=== PATIENT | female | born 1950 | race Caucasian/White ===

== ENCOUNTER 2025-01-13 10:38 | Emergency (ER) | payer MEDICARE, OTHER, SELFPAY ==
[2025-01-13 10:38] VITALS: BP 128/80; PULSE 77; RESP 18; TEMP 36.9; O2SAT 100; BMI 29.2
[2025-01-13 11:13] VITALS: BP 153/82; PULSE 91; RESP 13; O2SAT 98
[2025-01-13] MEDS: dexAMETHasone 4 MG Tablet 8 MG PO (11:18)
[2025-01-13 11:25] LABS: Absolute Lymphocyte Count 0.59 X10^3/uL (0.83-4.51); Absolute Neutrophil Count 5.7 X10^3/uL (2.0-7.7); Basophil# 0.01 X10^3/uL; Basophil% 0.1 % (0-1); Eosinophil# 0.01 X10^3/uL; Eosinophils% 0.1 % (0-5); Hematocrit 41.1 % (37-47); Hemoglobin 13.9 g/dL (12.0-15.0); Lymphocyte # 0.59 X10^3/ul (0.83-4.51); Lymphocyte % 8.6 % (19-41); Mean Corp Hgb Conc 33.8 g/dL (32-36); Mean Corpuscular Hgb 30.1 pg (27.0-32.0); Mean Platelet Vol. 9.9 fl (6.2-12.0); Monocyte# 0.48 X10^3/uL; NRBC Flagged by Analyzer 0 % (0-5); Neutrophil # 5.73 X10^3/uL (2.7-7.7); Neutrophil % 83.9 % (47-70); POSITIVE DIFFERENTIAL YES; Platelet Count 211 K/mm3 (150-450); RBC Distribution Width CV 13.2 % (11.6-14.6); RBC Distribution Width SD 43.3 fl (35.1-43.9); Red Blood Count 4.62 M/mm3 (4.2-5.4); White Blood Count 6.8 K/mm3 (4.4-11.0)
--- NOTE | 2025-01-13 12:11 | EX.ED.DYSGE1 ---
HPI History of Present Illness Chief Complaint: Palpitations Informant: patient Narrative Narrative: Patient referred from urgent care due to reported palpitations. Patient last evening slight throat throat which worsened in the evening time. She states she felt her heart racing and pounding from her ear. She had fevers and chills. It resolved this morning. She went to express care report her symptoms was sent directly here. She states with any illnesses she feels symptoms that affects her clinically. No recurrent fevers. No medications taken. Still has her tonsils. Denies history of strep in the past. No chest pains no abdominal pain. No vomiting or diarrhea. She denied lightheaded symptoms with her racing heart. [facility] Medical History Thyroid disease Hypertension Home Medications ?Medication ?Instructions ?Recorded ?Last Taken ?Type atorvastatin 10 mg tablet (Lipitor) 10 mg PO QHS 01/13/25 01/12/25 History cholecalciferol (vitamin D3) 25 25 mcg PO DAILY 01/13/25 01/12/25 History mcg (1,000 unit) tablet cyanocobalamin (vitamin B-12) 500 500 mcg PO DAILY 01/13/25 01/12/25 History mcg tablet levothyroxine 50 mcg tablet 50 mcg PO DAILY 01/13/25 01/12/25 History (Unithroid) lisinopril 40 mg tablet 40 mg PO DAILY 01/13/25 01/12/25 History Allergy/AdvReac Type Severity Reaction Status Date / Time nickel Allergy Swelling Verified 01/13/25 10:38 Penicillins Allergy Hives Verified 01/13/25 10:38 Family History Other Cancer Diabetes Heart disease Surgical History History of tubal ligation Social History Smoking Status: Never smoker alcohol intake: current alcohol intake frequency: holidays/special occasions only Alcohol type: wine ROS ROS ED Constitutional Constitutional ED: Reports chills and fever(s); Denies sweats ENT ENT ED: Reports sore throat Cardiovascular Cardiovascular: Reports palpitations and racing heartbeat; Denies chest pain or leg edema Respiratory/Chest Respiratory/Chest: Denies cough, dyspnea or dyspnea on exertion Gastrointestinal Gastrointestinal: Denies abdominal pain, diarrhea, nausea or vomiting Genitourinary Genitourinary ED: Denies dysuria, hematuria or urinary frequency Musculoskeletal Musculoskeletal: Denies back pain, extremity pain or neck pain Integumentary Denies rash or wounds Neurologic Neurologic: Denies headache(s), paresthesias or weakness EXAM Physical Exam Const Vital Signs: 01/13/25 10:38 01/13/25 11:13 01/13/25 13:00 Temperature 98.4 F Temperature Source Oral Pulse Rate 77 91 71 Respiratory Rate 18 13 15 Blood Pressure 128/80 H 153/82 H 154/80 H Blood Pressure Mean 96 105 104 Pulse Ox 100 98 99 Oxygen Delivery Method Room Air Room Air 01/13/25 13:23 Temperature 98.8 F Temperature Source Pulse Rate 73 Respiratory Rate 16 Blood Pressure 144/80 H Blood Pressure Mean 101 Pulse Ox 99 Oxygen Delivery Method Positive well nourished and well developed General Appearance ED: well developed and NAD HEENT Reports TM's clear and moist mucous membranes HEENT Narrative: Posterior pharyngeal erythema minimal sized tonsils bilaterally. No exudates. Uvula midline. No trismus. normocephalic and atraumatic Tympanic Membrane ED: Yes TM's clear Eyes General Eye ED: Yes normal appearance of both eyes Neck full ROM Chest Wall Chest: Negative for tenderness Resp normal respiratory effort and normal air movement Effort and Inspection: symmetric chest movement; Negative for respiratory distress Cardio regular rate, regular rhythm and no murmurs Peripheral Pulses: pulses 2+ throughout GI normal to inspection, nondistended, normoactive bowel sounds and non-tender Palpation: Negative for guarding or rebound tenderness present Extremity normal to inspection General Extremety ED: Negative for edema or tenderness General Extremity: Negative for edema Neuro oriented x3 and no sensory deficits noted Sensorium / Orientation: awake and alert Skin no rashes or lesions noted and no wounds MDM MDM MDM Narrative Medical decision making narrative: Interventions / MDM: Differential diagnosis: Pharyngitis, palpitations Diagnosis considered but do not suspect: Strep however swab negative. No clinical peritonsillar abscess. My EKG interpretation: Sinus arrhythmia rate of 81, no ST changes. QTc 427. Imaging independently reviewed and interpreted by myself: N/A External documents reviewed: N/A Test considered but not ordered:N/A ED course: Patient reporting palpitations no lightheaded symptoms since resolved. She has mild posterior pharyngeal erythema. EKG notes sinus arrhythmia normal rate. Will check basic labs with electrolytes. She is on thyroid medication at home. Rapid strep ordered along with viral studies of COVID flu and RSV. Oral dexamethasone ordered to help with throat symptoms. Workup negative. Clinically was improving after the steroids. Reassured on findings. Discussed with patient return precautions. All questions were answered. Re-evaluation: stable Disposition discussed with patient/family/significant other: Patient Case discussed with consulting clinician: N/A This note was generated with [employer] dictation software. It may contain incorrect words, spelling, and punctuation that were not noted in checking the note before signing. Lab Data Attestation: I reviewed the patient's lab results. Labs: Laboratory Results - last 24 hr 01/13/25 11:05 WBC 6.8 RBC 4.62 Hgb 13.9 Hct 41.1 MCV 89.0 MCH 30.1 MCHC 33.8 RDW Std Deviation 43.3 RDW Coeff of Loli 13.2 Plt Count 211 MPV 9.9 Immature Gran % (Auto) 0.300 Neut % (Auto) 83.9 H Lymph % (Auto) 8.6 L [place] % (Auto) 7.0 Eos % (Auto) 0.1 Baso % (Auto) 0.1 Absolute Neuts (auto) 5.7 Absolute Lymphs (auto) 0.59 L Nucleated RBC % 0 Sodium 137 Potassium 5.1 Chloride 101 Carbon Dioxide 22.4 Anion Gap 14 BUN 14 Creatinine 0.72 Estim Creat Clear Calc 73.48 Est GFR (MDRD) Non-Af 89 BUN/Creatinine Ratio 19.4 Glucose 95 Calcium 9.4 Discharge Plan Triage Chief Complaint: Palpitations ED Provider: Michael Mackey Dx/Rx/DC Orders Clinical Impression: Pharyngitis, Palpitations Instructions: ED Palpitations, ED Pharyngitis, Viral Prescriptions: No Action levothyroxine [Unithroid] 50 mcg tablet 50 mcg PO DAILY atorvastatin [Lipitor] 10 mg tablet 10 mg PO QHS Patient Comments: PT TAKES EVERY OTHER DAY lisinopril 40 mg tablet 40 mg PO DAILY Patient Comments: PT TAKS AT NIGHT cholecalciferol (vitamin D3) 25 mcg (1,000 unit) tablet 25 mcg PO DAILY Patient Comments: PT TAKES AT NIGHT cyanocobalamin (vitamin B-12) 500 mcg tablet 500 mcg PO DAILY Patient Comments: PT TAKES AT NIGHT Primary Care Provider: OLENA REAVES Referrals: OLENA REAVES [Other] - 1 Week Activity Restrictions/Additional Instructions: Strep test negative. COVID flu and RSV negative. Your labs are stable. EKG sinus arrhythmia, this is normal. Follow-up with your doctor. You are status post dexamethasone. Print Language: Pakistani Disposition Disposition: Home, Self Care Discharge Date/Time: 01/13/25 13:31
[2025-01-13 12:14] LABS: Anion Gap 14 (5-15); BUN 14 mg/dL (4-19); BUN/Creat Ratio 19.4 RATIO (10-20); Calcium,Total 9.4 mg/dL (7.6-11.0); Carbon Dioxide 22.4 mmol/L (21.0-32.0); Chloride 101 mmol/L (98-108); Creatinine, Serum 0.72 mg/dL (0.70-1.20); EST Glomerular Filtration Rate 89 (>60); Estimated Creatinine Clearance 73.48 ml/min (50-250); Glucose 95 mg/dL (70-99); Potassium 5.1 mmol/L (3.3-5.1); Sodium Level 137 mmol/L (133-145)
[2025-01-13 13:00] VITALS: BP 154/80; PULSE 71; RESP 15; O2SAT 99
[2025-01-13 13:23] VITALS: BP 144/80; PULSE 73; RESP 16; TEMP 37.1; O2SAT 99
== END 2025-01-13 13:31 | disposition home or self-care (01) ==
PROVIDERS: Emergency Provider Emergency Medicine; Visit Provider Emergency Medicine
DX: R00.2 Palpitations (principal); J02.9 Acute pharyngitis, unspecified; I10 Essential (primary) hypertension; E07.9 Disorder of thyroid, unspecified; Z98.51 Tubal ligation status; Z79.899 Other long term (current) drug therapy
CPT/HCPCS: 80048; 85025; 87631; 87651; 93005; 99284; A4216